=== PATIENT | male | born 1960 | race African-American/Black ===

== ENCOUNTER 2017-06-30 22:01 | Emergency (ER) | payer BC ==
[~2017-06-30] VITALS: Ht 172.7 cm; Wt 74.8 kg
[~2017-06-30 22:01] MED LIST: ALFUZOSIN HCL10 MG PO; AMOXICILLIN500 MG ORAL; HUMALOG100 UNIT/3 SUBQ; LANTUS SOL100 UNIT/1 SUBQ; LISINOPRIL30 MG ORAL; VENLAFAXINE H37.5 MG ORAL; ZOFRAN4 MG ORAL
[2017-06-30] MEDS ORDERED: fentaNYL 100 mcg/2 mL IV ONE (22:15)
[2017-06-30 22:30] VITALS: BP 135/77
[2017-06-30 22:40] LABS: HEMATOCRIT 54.9 % (42.0-52.0); MEAN CORPUSCULAR VOLUME 93 FL (80-99); PLATELET COUNT 286 K/UL (150-450); RED BLOOD COUNT 5.87 M/UL (4.70-6.10); RED CELL DISTRIBUTION WIDTH 11.2 % (11.6-14.8); WHITE BLOOD COUNT 16.2 K/UL (4.8-10.8)
[2017-06-30 22:50] LABS: ANION GAP 9 mmol/L (5-15); BLOOD UREA NITROGEN 20 mg/dL (7-18); CALCIUM 9.4 MG/DL (8.5-10.1); CARBON DIOXIDE 30 MMOL/L (21-32); CHLORIDE 103 MMOL/L (98-107); CREATININE 0.9 MG/DL (0.55-1.30); POTASSIUM 4.1 MMOL/L (3.5-5.1); SODIUM 142 MMOL/L (136-145)
[2017-06-30 22:54] LABS: ALANINE AMINOTRANSFERASE 31 U/L (12-78); ALBUMIN 4.2 G/DL (3.4-5.0); ALBUMIN/GLOBULIN RATIO 1.4 (1.0-2.7); ALKALINE PHOSPHATASE 60 U/L (46-116); ASPARTATE AMINO TRANSFERASE 31 U/L (15-37); BILIRUBIN,TOTAL 0.9 MG/DL (0.2-1.0)
[2017-06-30] MEDS ORDERED: Mylanta II UD 30ml ORAL ONE (23:15)
[2017-06-30] MEDS ORDERED: HYDROmorphone 1mg/ml Carpuject IVP PRN (23:15)
[2017-06-30 23:30] VITALS: BP 118/77
[2017-06-30 23:54] LABS: APPEARANCE,URINE CLEAR; BILIRUBIN, URINE NEGATIVE (NEGATIVE); GLUCOSE, URINE (UA) 4+ (NEGATIVE); KETONES,URINE 3+ (NEGATIVE); LEUKOCYTE ESTERASE ,URINE NEGATIVE (NEGATIVE); NITRITE,URINE NEGATIVE (NEGATIVE); PH,URINE 6 (4.5-8.0); PROTEIN,URINE NEGATIVE (NEGATIVE); UROBILINOGEN,URINE NORMAL MG/DL (0.0-1.0)
[2017-06-30 23:59] LABS: COLOR,URINE YELLOW
--- NOTE | 2017-07-01 00:20 | Emergency Room Report ---
History of Present Illness General Chief Complaint: Abdominal Pain Source: Patient Present Illness HPI Patient presents with severe abdominal pain and vomiting. He thinks he might have eaten something unusual at work today. He had a similar episode in May 2015. He is vomiting uncontrollably at this time. He feels a pressure in his stomach and burning. Denies any diarrhea. The pain is 8-9/10 epigastric nonradiating. The patient is diabetic. He denies any heart disease. He took less of his long -acting insulin earlier today. Several years ago he was treated for Giardia. This lasted for several months until a diagnosis was made. He hasn't had problems like that since that time. The episode in 2014 was different. He feels he was worse then. No URI sy, chest pain, cough, melena, vomiting blood. He was skiing over the weekend and took Aleve. Allergies: Coded Allergies: NO KNOWN DRUG ALLERGIES (Unverified Allergy, Unknown, 06/04/14) Patient History Past Medical History: see triage record Social History: Denies: smoking, alcohol use, drug use Social History Retail Experience Specialist for [employer] Reviewed Nursing Documentation: PMH: Agreed, PSxH: Agreed Nursing Documentation-PMH Hx Diabetes: Yes Review of Systems All Other Systems: negative except mentioned in HPI Physical Exam Vital Signs Date Time Temp Pulse Resp B/P (MAP) Pulse Ox O2 Delivery O2 Flow Rate FiO2 06/30/17 22:07 97.2 100 18 135/77 98 Room Air Sp02 EP Interpretation: reviewed, normal General Appearance: mild distress Head: normocephalic Eyes: bilateral eye normal inspection, bilateral eye PERRL ENT: moist mucus membranes Neck: supple Respiratory: lungs clear, normal breath sounds Cardiovascular #1: regular rate, rhythm Cardiovascular #2: 2+ radial (R) Gastrointestinal: normal inspection, no mass, non-distended, no guarding, no rebound, tenderness, decreased bowel sounds Musculoskeletal: back normal, gait/station normal, normal range of motion Neurologic: alert, oriented x3, grossly normal Psychiatric: other - vomiting and in pain Skin: normal inspection, warm/dry Medical Decision Making Diagnostic Impression: Primary Impression: Abdominal pain Qualified Codes: R10.13 - Epigastric pain Additional Impression: Nausea & vomiting Qualified Codes: R11.2 - Nausea with vomiting, unspecified ER Course Patient presents with epigastric pain with nausea and vomiting. Differential includes acute myocardial infarction, acute coronary syndrome, gastritis, gastroenteritis, pancreatitis amongst others. Evaluation will be with EKG, chest and abdominal films, labs and the patient will be treated with IV hydration and Pepcid it's along with Zofran and analgesia. EKG without injury. Chest x-ray and abdominal films unremarkable. Labs are significant for elevated white count. Electrolytes are within normal limits except BUN is elevated. The patient states the pain was still significant after initial analgesics. He stated that this happened in May. What was used at that time helped him. He received both morphine and then Dilaudid in May. Dilaudid is ordered. The patient is greatly improved. Abdomen is soft. He states the pain is 2-3/ 10 at this time. He is tolerating oral medication. Repeat EKG as first had NSSTTW changes. Repeat EKG unchanged without pain. Patient stable for outpatient observation and treatment. Laboratory Tests Test 06/30/17 22:25 06/30/17 23:00 White Blood Count 16.2 K/UL (4.8-10.8) H Red Blood Count 5.87 M/UL (4.70-6.10) Hemoglobin 18.0 G/DL (14.2-18.0) Hematocrit 54.9 % (42.0-52.0) H Mean Corpuscular Volume 93 FL (80-99) Mean Corpuscular Hemoglobin 30.6 PG (27.0-31.0) Mean Corpuscular Hemoglobin Concent 32.8 G/DL (32.0-36.0) Red Cell Distribution Width 11.2 % (11.6-14.8) L Platelet Count 286 K/UL (150-450) Mean Platelet Volume 7.4 FL (6.5-10.1) Neutrophils (%) (Auto) % (45.0-75.0) Lymphocytes (%) (Auto) % (20.0-45.0) Monocytes (%) (Auto) % (1.0-10.0) Eosinophils (%) (Auto) % (0.0-3.0) Basophils (%) (Auto) % (0.0-2.0) Differential Total Cells Counted 100 Neutrophils % (Manual) 86 % (45-75) H Lymphocytes % (Manual) 7 % (20-45) L Monocytes % (Manual) 5 % (1-10) Eosinophils % (Manual) 1 % (0-3) Basophils % (Manual) 1 % (0-2) Band Neutrophils 0 % (0-8) Platelet Estimate Adequate Platelet Morphology Normal Red Blood Cell Morphology Normal Prothrombin Time 10.4 SEC (9.30-11.50) Prothrombin Time INR 1.0 (0.9-1.1) PTT 25 SEC (23-33) Sodium Level 142 MMOL/L (136-145) Potassium Level 4.1 MMOL/L (3.5-5.1) Chloride Level 103 MMOL/L (98-107) Carbon Dioxide Level 30 MMOL/L (21-32) Anion Gap 9 mmol/L (5-15) Blood Urea Nitrogen 20 mg/dL (7-18) H Creatinine 0.9 MG/DL (0.55-1.30) Estimate Glomerular Filtration Rate > 60 mL/min (>60) Glucose Level 107 MG/DL (74-106) H Calcium Level 9.4 MG/DL (8.5-10.1) Total Bilirubin 0.9 MG/DL (0.2-1.0) Aspartate Amino Transferase (AST) 31 U/L (15-37) Alanine Aminotransferase (ALT) 31 U/L (12-78) Alkaline Phosphatase 60 U/L (46-116) Troponin I 0.000 ng/mL (0.000-0.056) Total Protein 7.2 G/DL (6.4-8.2) Albumin 4.2 G/DL (3.4-5.0) Globulin 3.0 g/dL Albumin/Globulin Ratio 1.4 (1.0-2.7) Lipase 103 U/L (73-393) Urine Color Yellow Urine Appearance Clear Urine pH 6 (4.5-8.0) Urine Specific [place] 1.020 (1.005-1.035) Urine Protein Negative (NEGATIVE) Urine Glucose (UA) 4+ (NEGATIVE) H Urine Ketones 3+ (NEGATIVE) H Urine Occult Blood Negative (NEGATIVE) Urine Nitrite Negative (NEGATIVE) Urine Bilirubin Negative (NEGATIVE) Urine Urobilinogen Normal MG/DL (0.0-1.0) Urine Leukocyte Esterase Negative (NEGATIVE) EKG Diagnostic Results Rate: normal Rhythm: NSR ST Segments: no acute changes Other Impression Repeat EKG with NSSTTW changes, no change from first. Rhythm Strip Diag. Results EP Interpretation: yes Rhythm: NSR, no PVC's, no ectopy Chest X-Ray Diagnostic Results Chest X-Ray Diagnostic Results : Chest X-Ray Ordered: Yes # of Views/Limited/Complete: 1 View Indication: Other EP Interpretation: Yes Interpretation: no consolidation, no effusion, no pneumothorax, no acute cardiopulmonary disease Impression: No acute disease Electronically Signed by: Garfield Banks MD Other X-Ray Diagnostic Results Other X-Ray Diagnostic Results : X-Ray ordered: abd # of Views/Limited Vs Complete: 1 View Indication: Pain Interpretation: nonspecific bowel gas, no sbo, other - no mases/ calcifications Impression: No acute disease Electronically Signed by: Garfield Banks MD Last Vital Signs Date Time Temp Pulse Resp B/P (MAP) Pulse Ox O2 Delivery O2 Flow Rate FiO2 07/01/17 01:15 97.1 99 18 118/77 98 Room Air 95 Status: improved Disposition: HOME, SELF-CARE Condition: Improved Scripts Tramadol Hcl* (ULTRAM*) 50 Mg Tablet 50 MG ORAL Q6H Y for For Pain, #6 TAB 0 Refills Prov: Garfield Banks M.D. 07/01/17 Famotidine (PEPCID) 20 Mg Tablet 20 MG ORAL DAILY, #30 TAB 0 Refills Prov: Garfield Banks M.D. 07/01/17 Ondansetron Odt* (ZOFRAN ODT*) 4 Mg Tab.rapdis 4 MG ORAL Q8H Y for Nausea & Vomiting, #6 TAB 1 Refill Prov: Garfield Banks M.D. 07/01/17 Referrals: NON PHYSICIAN (PCP) Garfield Banks M.D. Jul 01, 2017 00:20
[2017-07-01 00:30] VITALS: BP 122/61
[2017-07-01] MEDS ORDERED: ZOFRAN ODT4 MG ORAL (01:04)
[2017-07-01] MEDS ORDERED: TRAMADOL HCL50 MG ORAL (01:04)
[2017-07-01] MEDS ORDERED: PEPCID20 MG ORAL (01:04)
[2017-07-01 01:15] VITALS: BP 118/77
--- NOTE | 2017-07-01 08:52 | Diagnostic Imaging Report ---
Indication: Chest pain Technique: One view of the chest Comparison: 05/30/2015 Findings: Lungs and pleural spaces are clear. Heart size is normal . Inspiration is suboptimal. No significant change Impression: No acute process This agrees with the preliminary interpretation provided by the emergency room physician
--- NOTE | 2017-07-01 09:46 | Diagnostic Imaging Report ---
Indication: Abdominal pain Technique: Supine view of the abdomen Comparison: none Findings: Bowel gas pattern is unremarkable. No unusual masses or calcifications Impression: Negative This agrees with the preliminary interpretation provided by the emergency room physician
--- NOTE | 2017-07-08 18:29 | Cardiology Report ---
APPROVED REPORT EKG Measurement Heart [id number] Normal sinus rhythm Nonspecific T wave abnormality Prolonged QT Abnormal ECG
--- NOTE | 2017-07-08 18:32 | Cardiology Report ---
APPROVED REPORT EKG Measurement Heart [id number] [place] [id number] Normal sinus rhythm Nonspecific T wave abnormality Prolonged QT Abnormal ECG
== END 2017-07-01 01:15 | disposition home or self-care (01) ==
LOC: EMR 22:24
DX: R10.9 Unspecified abdominal pain (principal); R11.2 Nausea with vomiting, unspecified; E11.9 Type 2 diabetes mellitus without complications
CPT/HCPCS: 36415; 71045; 74018; 80053; 81003; 82962; 83690; 84484; 85007; 85025; 85610; 85730; 93005; 96361; 96374; 96375; 99284; J1170; J2405; J3010; S0028